=== PATIENT | male | born 1990 | race African-American/Black ===

== ENCOUNTER 2017-01-09 11:15 | Emergency (ER) | payer MEDICAID ==
[~2017-01-09] VITALS: Ht 182.9 cm; Wt 87.0 kg
[2017-01-09 11:34] VITALS: BP 117/69
[2017-01-09] MEDS ORDERED: TETRACAINE 0.5% OPHTH DROPS 4ML OP ONE (12:15)
[2017-01-09] MEDS ORDERED: FLUORESCEIN SODIUM 1MG/STRIP OP ONE (12:15)
== END 2017-01-09 13:05 | disposition home or self-care (01) ==
LOC: ER 12:39
DX: H10.022 Other mucopurulent conjunctivitis, left eye (principal); F12.10 Cannabis abuse, uncomplicated
CPT/HCPCS: 99283